=== PATIENT | female | born 1950 | race Caucasian/White ===

== ENCOUNTER → 2019-03-19 | Outpatient (CLI) | payer OTHER ==
[~2019-03-19] MED LIST: BIO IDENTICAL HORMON; PRILOSEC20 MG PO
== END | disposition home or self-care (01) ==
LOC: GI 08:41
DX: K29.80 Duodenitis without bleeding (principal); D50.9 Iron deficiency anemia, unspecified; Z98.890 Other specified postprocedural states; Z91.041 Radiographic dye allergy status